=== PATIENT | female | born 1950 | race Caucasian/White ===

== ENCOUNTER → 2017-11-28 | Outpatient (CLI) | payer MEDICARE, OTHER ==
--- NOTE | 2017-11-28 08:42 | RAD ---
ABDOMEN LTD History: Right flank pain, diarrhea, diabetes Comparison: None. Findings: Multiple sonographic images of the abdomen are submitted. Pancreas is poorly visualized. Inferior vena cava is poorly visualized. Gallbladder is present without intraluminal abnormality, wall thickening, pericholecystic fluid. Common bile duct is borderline 0.6 cm. Right kidney measured 12.9 x 5.4 x 4.5 cm, no hydronephrosis. No focal hepatic lesion is demonstrated. There is diffuse coarsening of the echotexture of the liver. Right lobe liver measured 19.8 cm longitudinal. Impression: 1. There is diffuse coarsening of the echotexture of the liver likely due to steatosis, mild hepatomegaly. 2. Midline structures are poorly visualized. There is no abnormality of the gallbladder. Common bile duct is borderline in caliber. Electronically signed by: Perez Hamilton MD (11/28/2017 8:38 AM) [id number]
== END | disposition home or self-care (01) ==
LOC: US 07:33
DX: K76.0 Fatty (change of) liver, not elsewhere classified (principal); R16.0 Hepatomegaly, not elsewhere classified; E11.9 Type 2 diabetes mellitus without complications
CPT/HCPCS: 76705

== ENCOUNTER → 2018-09-17 | Outpatient (CLI) | payer MEDICARE ==
[~2018-09-17] MED LIST: IOHEXOL 240 MG/ML 50ML VIAL. ONE; IOHEXOL 240 MG/ML 50ML VIAL. PO ONE; IOHEXOL 300 MG/ML 75 ML VIAL. IV ONE
--- NOTE | 2018-09-17 11:12 | RAD ---
Examination: CT ABD PELV W/ORAL IV CONTRAST History: Left flank pain. Chronic diarrhea. Comparison/Correlation: None Findings: Axial images of the abdomen and pelvis were obtained following IV and oral contrast. Sagittal and coronal reformatted images were provided. Visualized lung bases are clear. Right hepatic lobe very small to characterize low-attenuation lesion on axial image 20 of series 2 is present and may represent a biliary hamartoma or possibly cyst. Spleen is unremarkable. Pancreas is unremarkable. Gallbladder fossa is normal. Slight fullness of the right pelvicalyceal system is noted. Left kidney is unremarkable. Very small to characterize right renal interpolar region lesion which probably represents a cyst or other benign process is identified. Moderate quantity of stool is present in the colon. Diverticulosis of the colon is present. Urinary bladder is nearly completely decompressed. No ascites or pelvic free fluid. Degenerative changes of the low lumbar spine facet joints noted. Anterolisthesis of L4 over L5 is 0.5 cm present and this is less than grade 1 extent. Impression: Diverticulosis. No definite inflammatory change. Mild fullness of the right pelvicalyceal system. This is of indeterminate age. Correlate for possible recent passage of calculus. No right hydroureter PQRS Compliance Statement: One or more of the following individualized dose reduction techniques were utilized for this examination: 1. Automated exposure control 2. Adjustment of the mA and/or kV according to patient size 3. Use of iterative reconstruction technique Electronically signed by: Ryan Gottlieb MD (09/17/2018 11:09 AM) [facility]
== END | disposition home or self-care (01) ==
LOC: CT 09:29
PROVIDERS: ATTEND Family Medicine
DX: K57.30 Diverticulosis of large intestine without perforation or abscess without bleeding (principal); M47.816 Spondylosis without myelopathy or radiculopathy, lumbar region; K52.9 Noninfective gastroenteritis and colitis, unspecified
CPT/HCPCS: 74177; Q9966; Q9967